=== PATIENT | male | born 1955 | race Caucasian/White ===

== ENCOUNTER 2016-11-04 00:09 | Emergency (ER) | payer OTHER ==
--- NOTE | 2016-11-04 19:18 | ER ---
ADMIT: 11/04/2016 RM/LOC: ER [facility] MR#: [id number] [address] [id number] FANG PHAND Mauricio [address] [place] [id number] Emergency Room Report SEX: M AGE: 61 : 1955 DATE: 11/04/2016 HISTORY OF PRESENT ILLNESS: The patient is a 61-year-old male with a history of hypertension, came to the ER with chief complaint of nasal bridge and forehead laceration. Allegedly, the patient was in the bathroom while he tripped on the slippery surface and hit the face to the wall. The patient denies any fall on the floor or any loss of consciousness and the event was witnessed by the spouse. The patient complains of [id number] pain in the area of the laceration and denies any pain in other parts of the body. PHYSICAL EXAMINATION: GENERAL: The patient is alert, oriented, in no pain or distress. HEENT: Head and neck; there are no raccoon eyes or Barron sign. There is no hemotympanum. There is no step-offs or midline tenderness in the spine. Pupils are normal, reactive to light bilaterally. There is a 3 cm laceration on the bridge of the nose extending to the left forehead, which is linear and clean without exposure of the bones or cartilages. Trachea is midline. CHEST: Clear bilaterally. ABDOMEN: Soft. The rest of the physical exam is noncontributory. After cleaning and irrigation of the area with local anesthesia with lidocaine, it was repaired in 2 layers with Vicryl and Prolene per T-sheet. The patient was discharged to home with advice on return precautions for head trauma and wound care handouts and follow up with the primary care doctor. Angelito Kaye MD/ tai JOB #: [id number] CC: Angelito Kaye MD, Attending Physician Margaux Rosales MD, Family Physician
== END 2016-11-04 01:17 | disposition home or self-care (01) ==
LOC: ER 00:09
PROC: 09QKXZZ Repair Nasal Mucosa and Soft Tissue, External Approach (ICD-10-PCS; principal; 2016-11-04)
DX: S01.21XA Laceration without foreign body of nose, initial encounter (principal); W22.8XXA Striking against or struck by other objects, initial encounter; Y92.009 Unspecified place in unspecified non-institutional (private) residence as the place of occurrence of the external cause